=== PATIENT | female | born 2000 | race African-American/Black ===

== ENCOUNTER 2020-05-02 14:03 | Emergency (ER) | payer OTHER ==
[~2020-05-02] VITALS: Ht 170.2 cm; Wt 65.8 kg
[2020-05-02 14:25] VITALS: BP 125/67
--- NOTE | 2020-05-02 14:25 | NUR ---
ED Nurse Note: Patient walked in to ED c/o cyst on left calf x 1 year. Per pt, it started to get painful x4 months. Pt also reports she had ultrasound done last week which showed a 3cm cyst taht is superficial. Pt denies being on control. No SOB, on room air. ERPA at bedside.
[2020-05-02] MEDS ORDERED: Ketorolac 30mg Inj IM ONE (15:00)
--- NOTE | 2020-05-02 15:09 | Emergency Room Report ---
History of Present Illness General Chief Complaint: Skin Rash/Abscess Source: Patient Present Illness HPI 19-year-old female presents to the emergency department complaining of 7 out of 10 severity pain is been progressive over the course of 4 months in the posterior left calf. Patient states that she has had a cyst there for almost a year but it began causing her pain 4 months ago. Patient reports last week she had ultrasound performed which showed a 3 cm cyst that was superficial and just below the skin surface. Patient denies warmth, erythema, fevers, swelling of the lower extremity. Patient reports pain is increased with palpation. Patient denies being on control, estrogen or having recent immobilization or travel. Patient states she is already been evaluated for blood clot. She reports her evaluation with ultrasound was performed at [facility]. Patient denies taking any medications for her symptoms she denies taking anti-inflammatory medications. She denies trauma or fall. She denies paresthesias. No skin color changes. She denies chest pain, palpitations, shortness of breath , hemoptysis or wheezing Allergies: Coded Allergies: No Known Allergies (Unverified , 05/02/20) COVID-19 Screening Contact w/high risk pt: No Experienced COVID-19 symptoms?: No COVID-19 Testing performed COMPENSATION AGENT: No Patient History Past Medical History: see triage record Past Surgical History: none Pertinent Family History: none Now: No Reviewed Nursing Documentation: PMH: Agreed; PSxH: Agreed Review of Systems All Other Systems: negative except mentioned in HPI Physical Exam Vital Signs Date Time Temp Pulse Resp B/P (MAP) Pulse Ox O2 Delivery O2 Flow Rate FiO2 05/02/20 14:24 99.1 108 15 125/67 (86) 100 Room Air Sp02 EP Interpretation: reviewed, normal General Appearance: no apparent distress, alert, GCS 15, non-toxic Head: normocephalic, atraumatic Eyes: bilateral eye normal inspection, bilateral eye PERRL ENT: hearing grossly normal, normal voice Neck: full range of motion Respiratory: lungs clear, normal breath sounds, no respiratory distress, no wheezing, speaking full sentences Cardiovascular #1: regular rate, rhythm, no edema, normal capillary refill Cardiovascular #2: 2+ dorsalis pedis (L) Musculoskeletal: normal range of motion, gait/station normal, non-tender Neurologic: alert, motor strength/tone normal, oriented x3, sensory intact, responsive, speech normal Psychiatric: judgement/insight normal Skin: other - palpable mobile nodule just below the surface of the skin on the left calf. No erythema no swelling in the lower extremity, no warmth, no rope-like structure. No fluctuance. Medical Decision Making PA Attestation Dr. Dillard is my supervising Physician whom patient management has been discussed with. Diagnostic Impression: Primary Impression: Cyst of skin and subcutaneous tissue ER Course 19-year-old female presents to the emergency department complaining of 7 out of 10 severity pain is been progressive over the course of 4 months in the posterior left calf. Patient states that she has had a cyst there for almost a year but it began causing her pain 4 months ago. Patient reports last week she had ultrasound performed which showed a 1x3cm cyst that was superficial and just below the skin surface. Patient denies warmth, erythema, fevers, swelling of the lower extremity. Patient reports pain is increased with palpation. Patient denies being on control, estrogen or having recent immobilization or travel. Patient states she is already been evaluated for blood clot. She reports her evaluation with ultrasound was performed at [facility]. Patient denies taking any medications for her symptoms she denies taking anti-inflammatory medications. She denies trauma or fall. She denies paresthesias. No skin color changes. She denies chest pain, palpitations, shortness of breath , hemoptysis or wheezing Ddx considered but are not limited to cellulitis, ganglion cyst, abscess, soft tissue cyst, varicose vein, DVT just to name a few Vital signs: are WNL, pt. is afebrile H&PE are most consistent with palpable mobile nodule just below the surface of the skin on the left calf. No erythema no swelling in the lower extremity, no warmth, no rope-like structure, patient is nontoxic in appearance in no acute distress and ambulatory without assistance. No fluctuance ORDERS: none required at this time, the diagnosis is clinical ED INTERVENTIONS: -Toradol IM --- D/w pt. main concern would be for DVT. pt. reports since she just had an US performed to make sure it wasn't that, she does not want to repeat US at this time. DISCHARGE: At this time pt. is stable for d/c to home. Will provide printed patient care instructions, and any necessary prescriptions. Care plan and follow up instructions have been discussed with the patient prior to discharge. Last Vital Signs Date Time Temp Pulse Resp B/P (MAP) Pulse Ox O2 Delivery O2 Flow Rate FiO2 05/02/20 14:25 99.1 108 15 125/67 100 Room Air Disposition: HOME, SELF-CARE Condition: Stable Departure Forms: Return to Work Return to Work Date: May 06, 2020 Other Restrictions: Limited use of left leg/ strenuous activities/ standing/ walking. Return to Full Activity: May 12, 2020 Work Restrictions: No Heavy Lifting, No Prolonged Standing Patient Instructions: Medical Screening Exam Additional Instructions: Take medications as directed. Follow up with a Primary Care Provider in 3-5 days, even if your symptoms have resolved. WILL Require EVAL for SURGICAL REMOVAL if persistently causing inability to perform ADLs Return sooner to ED if new symptoms occur, or current symptoms become worse. - Please note that this Emergency Department Report was dictated using [employer] education coordinator technology software, occasionally this can lead to erroneous entry secondary to interpretation by the dictation equipment. Marixa Rodriguez May 02, 2020 15:09
[2020-05-02] MEDS ORDERED: IBUPROFEN600 M1 ORAL (15:11)
[2020-05-02] MEDS ORDERED: VOLTAREN100 G1 TP (15:11)
--- NOTE | 2020-05-02 15:23 | NUR ---
ED Nurse Note: Pt cleared by ERPA for discharge. DC instructions/prescription was given and explained to pt and verbalized understanding of teachings. All medical deviecs such as ID band removed. Pt is AAO x4, ambulatory and left with all personal belongings.
== END 2020-05-02 15:23 | disposition home or self-care (01) ==
LOC: EMR 14:33
DX: L72.8 Other follicular cysts of the skin and subcutaneous tissue (principal)
CPT/HCPCS: 96372; J1885; Z7502; 99283